=== PATIENT | female | born 1975 | race Caucasian/White ===

== ENCOUNTER 2021-01-14 09:54 | Emergency (ER) | payer OTHER ==
[~2021-01-14 09:54] MED LIST: CYCLOBENZAPRINE10 MG PO
[2021-01-14 10:39] LABS: BASOPHIL 0.5 % (0-2); EOSINOPHIL 1.4 % (0-5); HCT 44.9 % (37.0-47.0); HGB 15.2 g/dl (12.5-16.0); LYMPHOCYTE 14.7 % (15-48); MCHC 33.9 g/dL (32.0-36.0); MCV 91.4 fL (78.0-100.0); MONOCYTE 5.5 % (0-12); MPV 10.6 fL (6.0-9.5); NEUTROPHIL 77.4 % (41-80); NRBC 0; PLT 261 K/uL (150-400); RBC 4.91 M/uL (4.20-5.40); RDW 12.6 % (11.5-14.0); WBC 12.8 K/uL (4.0-10.5)
[2021-01-14] MEDS ORDERED: AZITHROMYCIN250 MG PO (10:46)
[2021-01-14] MEDS ORDERED: PREDNISONE 20MG20 MG PO (10:46)
[2021-01-14 10:55] LABS: BUN/CREAT RATIO (CALC) 9.4 RATIO; C-REACTIVE PROTEIN 1.5 mg/dL (<=0.90); CREATININE 0.53 mg/dL (0.51-0.95)
[2021-01-14 11:12] LABS: CORONAVIRUS 2019 SARS-COV-2 NEGATIVE (NEGATIVE); INFLUENZA A NAA NEGATIVE (NEGATIVE)
[2021-01-14] MEDS ORDERED: CEFPODOXIME PR200 MG PO (11:23)
[2021-01-14] MEDS ORDERED: DIFLUCAN150 MG PO (11:23)
[2021-01-14] MEDS ORDERED: TESSALON PERLE100 M1 PO (11:27)
== END 2021-01-14 12:44 | disposition home or self-care (01) ==
LOC: FER 09:54
PROVIDERS: Internal Medicine
DX: J18.9 Pneumonia, unspecified organism (principal); J45.909 Unspecified asthma, uncomplicated; I10 Essential (primary) hypertension; E11.9 Type 2 diabetes mellitus without complications; F17.210 Nicotine dependence, cigarettes, uncomplicated; Z88.6 Allergy status to analgesic agent; Z88.5 Allergy status to narcotic agent; Z88.2 Allergy status to sulfonamides; Z20.822 Contact with and (suspected) exposure to COVID-19
CPT/HCPCS: 36415; 71045; 80048; 82550; 84145; 85025; 86140; J0696; J2930; U0002

== ENCOUNTER → 2021-02-10 | Day surgery (SDC) | payer OTHER ==
[~2021-02-10] VITALS: Ht 175.3 cm; Wt 76.4 kg
[~2021-02-10] MED LIST changes: +AZITHROMYCIN250 MG PO; +CEFPODOXIME PR200 MG PO; +CELEXA20 MG PO; +DIFLUCAN150 MG PO; +IBUPROFEN800 MG PO; +NORCO 5-325 TA1 EACH PO; +PREDNISONE 20MG20 MG PO; +PRILOSEC20 MG PO; +TESSALON PERLE100 M1 PO; +VENTOLIN (2.5 MG/3 M INH; +VENTOLIN HFA IN18 GM INH; +VIBRAMYCIN100 MG PO
[2021-02-10 07:55] LABS: HCG (URINE) SCREEN NEGATIVE (NEGATIVE)
[2021-02-10 09:55] LABS: CREATININE 0.54 mg/dL (0.51-0.95); POTASSIUM 3.8 mmol/L (3.5-5.1)
== END | disposition home or self-care (01) ==
LOC: FAS 07:17
PROVIDERS: Anesthesiology; Surgery
DX: R22.2 Localized swelling, mass and lump, trunk (principal); J45.909 Unspecified asthma, uncomplicated; F17.200 Nicotine dependence, unspecified, uncomplicated; F31.4 Bipolar disorder, current episode depressed, severe, without psychotic features; F51.04 Psychophysiologic insomnia; F41.1 Generalized anxiety disorder; K21.9 Gastro-esophageal reflux disease without esophagitis; E53.8 Deficiency of other specified B group vitamins; E55.9 Vitamin D deficiency, unspecified; H60.61 Unspecified chronic otitis externa, right ear; Z79.899 Other long term (current) drug therapy; Z88.5 Allergy status to narcotic agent; Z88.2 Allergy status to sulfonamides; Z87.440 Personal history of urinary (tract) infections; Z87.01 Personal history of pneumonia (recurrent)
CPT/HCPCS: 36415; 80048; 84703; J1100; J2250; J2704; J3010; J7120

== ENCOUNTER 2021-05-10 12:55 | Emergency (ER) | payer OTHER ==
[2021-05-10 15:09] LABS: BASOPHIL 0.6 % (0-2); EOSINOPHIL 1.9 % (0-5); HCT 43.6 % (37.0-47.0); HGB 14.4 g/dl (12.5-16.0); LYMPHOCYTE 23.8 % (15-48); MCH 30.4 pg (25.0-31.0); MCV 92.2 fL (78.0-100.0); MONOCYTE 7.6 % (0-12); MPV 10.7 fL (6.0-9.5); NEUTROPHIL 65.8 % (41-80); NRBC 0; PLT 228 K/uL (150-400); RBC 4.73 M/uL (4.20-5.40); RDW 12.9 % (11.5-14.0); WBC 9.8 K/uL (4.0-10.5)
[2021-05-10 15:32] LABS: ALBUMIN 3.6 g/dL (3.4-5.0); BILIRUBIN - TOTAL 0.5 mg/dL (0.2-1.0); BUN/CREAT RATIO (CALC) 10.4 RATIO; CREATININE 0.67 mg/dL (0.51-0.95); GLOBULIN (CALCULATION) 3.4 g/dL
[2021-05-10 15:46] LABS: CORONAVIRUS 2019 SARS-COV-2 NEGATIVE (NEGATIVE); INFLUENZA A NAA NEGATIVE (NEGATIVE)
[2021-05-10] MEDS ORDERED: ONDANSETRON ODT4 MG PO (19:36)
== END 2021-05-10 19:52 | disposition home or self-care (01) ==
LOC: FER 12:55
PROVIDERS: Physician Assistant
DX: R07.89 Other chest pain (principal); R10.13 Epigastric pain; I10 Essential (primary) hypertension; J45.909 Unspecified asthma, uncomplicated; E11.9 Type 2 diabetes mellitus without complications; F17.200 Nicotine dependence, unspecified, uncomplicated; Z20.822 Contact with and (suspected) exposure to COVID-19; Z88.5 Allergy status to narcotic agent
CPT/HCPCS: 36415; 71045; 71275; 80053; 84484; 85025; 85379; 93005; Q9967; U0002